=== PATIENT | female | born 1945 | race Caucasian/White ===

== ENCOUNTER 2020-03-20 13:23 | Outpatient (CLI) | payer MEDICARE, SELFPAY ==
--- NOTE | ~2020-03-20 | US_ITS ---
EXAMINATION: US pelvic complete w TV EXAM DATE: 03/20/2020 15:02 INDICATION: Left-sided ovarian cyst. TECHNIQUE: Pelvic transabdominal and transvaginal sonogram was performed. There are multiple graysca le and Doppler images available for interpretation. There is no prior study for comparison. Correla tion was made with CT chest abdomen pelvis 10/22/2018. FINDINGS: Uterus surgically resected. Unremarkable vaginal cuff. There is no free pelvic fluid. Right adnexa: The ovary is not identified. There is no adnexal mass. Left adnexa: Left adnexal anechoic simple cystic region measuring 4.7 x 2.6 x 3.0 cm without evidence of wall thickening or internal echoes, appearance most consistent with benign histology. This is not significantly changed assuming it is the same cystic lesion identified in the left ovary on CT scan September 2018. IMPRESSION: Persistent left ovarian anechoic simple cystic region. Differential diagnosis does includ e cystic ovarian neoplasm, but most likely benign. Reviewed, dictated and finalized at location B. IMPRESSION: Persistent left ovarian anechoic simple cystic region. Differential diagnosis does include cystic ovarian neoplasm, but most likely benign.
== END 2020-03-20 13:24 | disposition home or self-care (01) ==
PROVIDERS: Visit Provider Nurse Practitioner
DX: N83.202 Unspecified ovarian cyst, left side (principal)
CPT/HCPCS: 76830; 76856

== ENCOUNTER → 2021-04-12 14:16 | Outpatient (CLI) | payer MEDICARE, SELFPAY ==
--- NOTE | ~2021-04-12 | US_ITS ---
EXAMINATION: US transvaginal DATE: 04/12/2021 14:53 INDICATION: Left ovarian cyst. TECHNIQUE: Multiple transvaginal sonographic images of the pelvis were obtained. COMPARISON: Ultrasound 03/20/2020 FINDINGS: The uterus is absent. There is no free fluid in the pelvis. The right ovary measures 2.0 x 1.1 x 1.7 cm. The left ovary measures 4.4 x 2.7 x 2.6 cm. There is a 4.4 x 2.7 cm cystic mass with low level ec hoes in left ovary that was anechoic on the prior ultrasound. There is normal vascular flow in the ov jaxson. IMPRESSION: 1. 4.4 cm cystic mass in left ovary, stable in size from 03/20/2020, but with new low level echoes. Th taylor findings are suggestive of, but not classic for, hemorrhagic cyst or endometrioma. Consider surgi lianna evaluation. Reviewed, dictated and finalized at location A. IMPRESSION: 1. 4.4 cm cystic mass in left ovary, stable in size from 03/20/2020, but with ne w low level echoes. These findings are suggestive of, but not classic for, hemo rrhagic cyst or endometrioma. Consider surgical evaluation.
== END ==
PROVIDERS: PCP Family Medicine; Visit Provider Obstetrics & Gynecology Gynecology
DX: N83.202 Unspecified ovarian cyst, left side (principal)
CPT/HCPCS: 76830

== ENCOUNTER → 2021-08-13 13:38 | Outpatient (CLI) | payer MEDICARE, SELFPAY ==
--- NOTE | ~2021-08-13 | US_ITS ---
EXAMINATION: US transvaginal EXAM DATE: 08/13/2021 14:06 INDICATION: Ovarian cyst. TECHNIQUE: Pelvic transvaginal sonogram was performed. There are multiple grayscale and Doppler imag es available for interpretation. Comparison is made to prior examination from 04/02/2021. FINDINGS: Uterus is not identified. Unremarkable vaginal cuff. Right adnexa: The ovary is not identified. There is no adnexal mass. Left adnexa: Left ovary has 2 cystic regions which are contiguous to each other, measuring 2.3 x 2.3 x 1.6 cm and 1.5 x 1.5 x 1.5 cm. They could be part of the same cystic mass given they're contiguous. These may have some proteinaceous fluid, and are unchanged compared to prior study. No wall thickeni ng identified along the cystic regions. IMPRESSION: Chronic left ovarian cystic mass, differential diagnosis including endometrioma, cystic o varian neoplasm (would favor benign histology). Reviewed, dictated and finalized at location B. NURSE RN IMPRESSION: Chronic left ovarian cystic mass, differential diagnosis including endometrioma, cystic ovarian neoplasm (would favor benign histology).
== END ==
PROVIDERS: Visit Provider Obstetrics & Gynecology Gynecology
DX: N83.202 Unspecified ovarian cyst, left side (principal)
CPT/HCPCS: 76830

== ENCOUNTER → 2022-05-20 15:10 | Outpatient (CLI) | payer MEDICARE, SELFPAY ==
--- NOTE | ~2022-05-20 | US_ITS ---
EXAMINATION: US transvaginal DATE: 05/20/2022 16:15 INDICATION: Follow-up left ovarian cyst. Comparison:08/13/2021 TECHNIQUE: Multiple endovaginal sonographic images of the pelvis performed. FINDINGS: The uterus is surgically absent. The right ovary is not visualized. The left ovary measures 3.6 x 2 x 3.2 cm and contains 2 small cyst s measuring up to 1.5 x 1.5 x 1.5 cm compared with 2.3 x 2.3 x 1.6 cm on prior study. There is free fluid in the pelvis. There are no abnormal masses seen on either side. IMPRESSION: 1. Small cysts of the left ovary measuring up to 1.5 cm, decreased in size compared with prior. Reviewed, dictated and finalized at location A. IMPRESSION: 1. Small cysts of the left ovary measuring up to 1.5 cm, decreased in size comp ared with prior.
== END ==
PROVIDERS: PCP Orthopaedic Surgery Orthopaedic Trauma; Visit Provider Obstetrics & Gynecology Gynecology
DX: N83.202 Unspecified ovarian cyst, left side (principal)
CPT/HCPCS: 76830

== ENCOUNTER 2023-05-29 15:50 | Outpatient (CLI) | payer MEDICARE, SELFPAY ==
--- NOTE | ~2023-05-29 | XR_ITS ---
EXAMINATION: XR chest 2V DATE: 05/29/2023 16:09 INDICATION: Cough. Wheezing. TECHNIQUE: Frontal and lateral views of the chest were obtained. COMPARISON: Chest 2 views 08/12/2013, PET/CT 11/03/2018 FINDINGS: A calcified right lung nodule and calcified mediastinal lymph nodes are consistent with old granulomatous disease. There are airspace opacities in right lower lobe. No pleural effusion or pneu mothorax. Cardiomegaly is noted. IMPRESSION: 1. Airspace opacities in right lower lobe, consistent with atelectasis versus pneumonia. 2. Cardiomegaly. Reviewed, dictated and finalized at location E. IMPRESSION: 1. Airspace opacities in right lower lobe, consistent with atelectasis versus p neumonia. 2. Cardiomegaly.
== END 2023-05-29 15:51 | disposition home or self-care (01) ==
PROVIDERS: PCP Internal Medicine; Visit Provider Internal Medicine
DX: R05.3 Chronic cough (principal); I51.7 Cardiomegaly; R91.8 Other nonspecific abnormal finding of lung field
CPT/HCPCS: 71046

== ENCOUNTER 2023-06-09 15:57 | Outpatient (CLI) | payer MEDICARE, SELFPAY ==
--- NOTE | ~2023-06-09 | XR_ITS ---
EXAMINATION: XR chest 2V Exam Date/Time: 06/09/2023 16:10 CDT HISTORY: Cough, Walking PNA, Afib Comparison: 05/29/2023. RESULT: Lines, tubes, and devices: None. Lungs and pleura: Senescent change. Calcified peripheral right midlung granuloma. Cardiomediastinal silhouette: Stable cardiomegaly. Other: No acute osseous or upper abdominal finding. IMPRESSION: No acute cardiopulmonary process. Near-complete interval resolution of the right lower lung opacities . Reviewed, dictated and finalized at location K. IMPRESSION: No acute cardiopulmonary process. Near-complete interval resolution of the righ t lower lung opacities.
== END 2023-06-09 15:58 | disposition home or self-care (01) ==
PROVIDERS: PCP Internal Medicine; Visit Provider Internal Medicine
DX: R05.9 Cough, unspecified (principal); I48.91 Unspecified atrial fibrillation
CPT/HCPCS: 71046

== ENCOUNTER 2023-07-17 08:03 | Day surgery (SDC) | payer MEDICARE, SELFPAY ==
[2023-06-25 15:06] VITALS: BMI 24.8
[2023-06-30 15:09] VITALS: BMI 24.5
--- NOTE | 2023-07-16 15:36 | PM.HPGS ---
History of Present Illness History of Present Illness Consent: Risks, benefits, and alternatives have been discussed and questions answered. Patient agrees to proceed with procedure. Chief complaint: Positive Cologuard, Other Fecal Abnormalities Narrative: Cande Torres is a 77 year old female Was referred for colon cancer screening. She was found have a positive Cologuard test. Her last colonoscopy was 11 years ago. Review of Systems Review of Systems: All systems reviewed & are unremarkable except as noted in HPI and below PMFSH Past Medical History Medical History Acute pain of both ears BMI 24.0-24.9, adult Chronic cough Colon cancer screening Encounter for Medicare annual wellness exam Encounter to establish care Follow up Hearing loss Hx of breast cancer Malignant neoplasm of female breast Pain in joint involving pelvic region and thigh Pneumonia Pre-diabetes Thyroid nodule Family History Family History Mother Family history of heart disease in male family member before age 55 Social History Social History Social History: Caffeine-none Smoking status: Never smoker Alcohol intake: current Drinks per week: 0 Alcohol use details: RARELY Substance use: never Substance use type: does not use Lack of Transportation: No Lack of Food: Never True Current Housing: I Have Housing Concerned About Future Housing: No Difficulty Paying Gas/Electric Bills: No Difficulty Paying for Meds: No Currently Unemployed: No Education: High School Diploma/GED Difficulty w/ Childcare or Family Care: No Living arrangements: with family Spiritual care concerns: No Meds Home Medications and Allergies Home Medications Medication Instructions Recorded Confirmed Type digoxin 125 mcg (0.125 mg) tablet 125 mcg PO DAILY 08/06/19 07/17/23 History (Digox) rivaroxaban 20 mg tablet (Xarelto) 20 mg PO DAILY 08/06/19 07/17/23 History rabeprazole 20 mg tablet,delayed 20 mg PO DAILY #90 tabs 09/15/19 07/17/23 Rx release tamoxifen 20 mg tablet 20 mg PO DAILY 02/18/23 07/17/23 History clonazepam 2 mg tablet 2 mg PO DAILY #30 tabs 07/14/23 07/17/23 Rx Allergies Allergy/AdvReac Type Severity Reaction Status Date / Time latex Allergy Unknown Rash Verified 07/17/23 09:28 Penicillins Allergy Unknown Rash Verified 07/17/23 09:28 ranitidine Allergy Unknown Unknown Verified 07/17/23 09:28 Contrast Media Allergy Unknown Rash Uncoded 07/17/23 09:28 promethazine codeine AdvReac Mild Dizziness Uncoded 07/17/23 09:28 Exam Resp: Auscultation: clear to auscultation bilaterally Cardio: Rate: regular rate Rhythm: regular rhythm GI: GI Palp: Yes Soft to palpation and No Tenderness to palpation present (GI) Assessment and Plan Assessment and plan (1) Positive colorectal cancer screening using Cologuard test: Code(s): R19.5 - Other fecal abnormalities Status: Acute Assessment and Plan: Colonoscopy with possible biopsy or polypectomy or cautery or injection of substances.
[2023-07-17 09:34] VITALS: BP 128/84; PULSE 98; RESP 18; TEMP 37.4; O2SAT 100
[2023-07-17] MEDS: LACTATED RINGERS 1,000 ML 150 ML IV CONT (09:46)
--- NOTE | 2023-07-17 10:00 | WPDANESEPPF ---
Anes - Initial Pre Proc Eval Procedure: Operation Date: 07/17/23 10:30 Proposed Procedures p Diagnostic Colonoscopy - Marvin Fischer MD Date/Time: 07/17/23 10:00 Surgeon: Marvin Fischer MD Pre Op Diagnosis: Positive Cologuard, Other Fecal Abnormalities Patient Data Age: 77 Gender: F Height: 1.68 m Weight: 67.6 kg Last Vital Signs Temp 37.4 C 07/17/23 09:34 Pulse 98 07/17/23 09:34 Resp 18 07/17/23 09:34 BP 128/84 07/17/23 09:34 Pulse Ox 100 07/17/23 09:34 O2 Del Method Room Air 07/17/23 09:34 Allergies Allergy/AdvReac Type Severity Reaction Status Date / Time latex Allergy Unknown Rash Verified 07/17/23 09:28 Penicillins Allergy Unknown Rash Verified 07/17/23 09:28 ranitidine Allergy Unknown Unknown Verified 07/17/23 09:28 Contrast Media Allergy Unknown Rash Uncoded 07/17/23 09:28 promethazine codeine AdvReac Mild Dizziness Uncoded 07/17/23 09:28 Home Medications Medication Instructions Recorded Confirmed Type digoxin 125 mcg (0.125 mg) tablet 125 mcg PO DAILY 08/06/19 07/17/23 History (Digox) rivaroxaban 20 mg tablet (Xarelto) 20 mg PO DAILY 08/06/19 07/17/23 History rabeprazole 20 mg tablet,delayed 20 mg PO DAILY #90 tabs 09/15/19 07/17/23 Rx release tamoxifen 20 mg tablet 20 mg PO DAILY 02/18/23 07/17/23 History clonazepam 2 mg tablet 2 mg PO DAILY #30 tabs 07/14/23 07/17/23 Rx Patient hx anesthesia problems: other (slow to awaken) Family hx anesthesia problems: none Results Review: All pre-operative results and documents have been reviewed as part of the pre-operative evaluation. [facility] Past Medical History Medical History Acute pain of both ears BMI 24.0-24.9, adult Chronic cough Colon cancer screening Encounter for Medicare annual wellness exam Encounter to establish care Follow up Hearing loss Hx of breast cancer Malignant neoplasm of female breast Pain in joint involving pelvic region and thigh Pneumonia Pre-diabetes Thyroid nodule Family History Family History Mother Family history of heart disease in male family member before age 55 Social History Social History Social History: Caffeine-none Smoking status: Never smoker Alcohol intake: current Drinks per week: 0 Alcohol use details: RARELY Substance use: never Substance use type: does not use Lack of Transportation: No Lack of Food: Never True Current Housing: I Have Housing Concerned About Future Housing: No Difficulty Paying Gas/Electric Bills: No Difficulty Paying for Meds: No Currently Unemployed: No Education: High School Diploma/GED Difficulty w/ Childcare or Family Care: No Living arrangements: with family Spiritual care concerns: No Anes - Eval Final PreProcedure Day of Procedure 07/17/23 10:00 Patient weight: normal Heart: regular rate and rhythm Lungs: clear to auscultation Airway: Mallampati scale class III Neurological: other (alert) Last oral intake: >/= 8 hours ASA classification: III Emergent: no Anesthetic plan: proceed Anesthesia type and monitoring: general GIVS and standard monitoring Results Review: All pre-operative results and documents have been reviewed as part of the pre-operative evaluation. Informed Consent: The patient's anesthetic plan and its attendant risks and benefits were discussed with the patient/family/POA. Questions were solicited and answers provided to the satisfaction of the patient/family/POA.
[2023-07-17 11:09] VITALS: BP 92/52; PULSE 82; RESP 14; O2SAT 98
[2023-07-17 11:19] VITALS: BP 92/52; PULSE 82; RESP 14; O2SAT 98
--- NOTE | 2023-07-17 11:27 | WPDANESPN ---
Anes - Prog Note Post-Op Date/Time: 07/17/23 11:27 Cardiovascular status: normal Respiratory status: normal Airway patency: baseline Mental status: baseline Post-Op hydration status: normal Vital Signs: Last Vital Signs Temp 37.4 C 07/17/23 09:34 Pulse 82 07/17/23 11:19 Resp 14 07/17/23 11:19 BP 92/52 L 07/17/23 11:19 Pulse Ox 98 07/17/23 11:19 O2 Del Method Room Air 07/17/23 11:19 Pain Score (VAS): 0 I/O: Intake & Output 07/16/23 07/17/23 07/17/23 23:59 07:59 15:59 Intake Total 550 Balance 550 Patient Feedback: Patient satisfied with anesthetic care.
[2023-07-17 11:29] VITALS: BP 122/72; PULSE 74; RESP 16; O2SAT 98
--- NOTE | 2023-07-17 11:48 | SUR.PHASEII ---
SPOKE WITH DR KYLE, PT MAY RESUME XARELTO TODAY. PT AND SPOUSE NOTIFIED. ALSO WRITTEN ON PT'S DISCHARGE INSTRUCTIONS.
== END 2023-07-17 11:55 | disposition home or self-care (01) ==
PROVIDERS: PCP Internal Medicine; Visit Provider Internal Medicine Gastroenterology
PROC: 0DJD8ZZ Inspection of Lower Intestinal Tract, Via Natural or Artificial Opening Endoscopic (ICD-10-PCS; CPT 45378; principal; 2023-07-17 10:30)
DX: K64.8 Other hemorrhoids (principal); K57.30 Diverticulosis of large intestine without perforation or abscess without bleeding
CPT/HCPCS: 45378

== ENCOUNTER → 2023-11-11 09:24 | Outpatient (REF) | payer MEDICARE, SELFPAY | LOC: ANHLAB 09:24 | PROVIDERS: PCP Internal Medicine; Visit Provider Plastic Surgery | DX: C44.722 Squamous cell carcinoma of skin of right lower limb, including hip (principal) | CPT/HCPCS: 88305 ==

== ENCOUNTER 2024-01-19 14:45 | Outpatient (CLI) | payer MEDICARE, SELFPAY ==
--- NOTE | ~2024-01-19 | XR_ITS ---
EXAMINATION: XR pelvis min 3V DATE: 01/19/2024 15:21 INDICATION: Low back pain, unspecified. TECHNIQUE: 3 views of the pelvis were obtained. COMPARISON: Pelvis radiograph 02/26/2019 FINDINGS: There is lumbar dextroscoliosis and severe spondylosis. There is diffuse sclerosis of the b ones. No fracture. There is mild osteoarthritis of the hips. IMPRESSION: 1. Mild osteoarthritis of the hips. 2. Chronic diffuse sclerosis of the bones. Bone biopsy on 11/06/2018 was negative for malignancy. This finding may be secondary to an abnormality of calcium metabolism. Reviewed, dictated and finalized at location E. IMPRESSION: 1. Mild osteoarthritis of the hips. 2. Chronic diffuse sclerosis of the bones. Bone biopsy on 11/06/2018 was negative for malignancy. This finding may be secondary to an abnormality of calcium met abolism.
--- NOTE | ~2024-01-19 | XR_ITS ---
EXAMINATION: XR lumbar spine 2-3V DATE: 01/19/2024 15:21 INDICATION: Low back pain, unspecified. TECHNIQUE: 3 views of lumbar spine were obtained. COMPARISON: None. FINDINGS: There is 10 degrees dextroscoliosis of lumbar spine. Vertebral body heights are normal. The re is mildly decreased disc height at L1-L2 and L2-L3, moderately decreased disc height at L3-L4, and severely decreased disc height at L4-L5 and L5-S1. There is multilevel severe facet joint osteoarthr itis. IMPRESSION: 1. Severe lumbar spondylosis. 2. Lumbar dextroscoliosis. Reviewed, dictated and finalized at location E.
--- NOTE | ~2024-01-19 | XR_ITS ---
XR thoracic spine 3V 01/19/2024 15:21 Indication: Thoracic spondylosis Procedure: 3 views thoracic spine Comparison: No prior studies for comparison. Findings: There is mild multilevel thoracic spondylosis characterized by disc narrowing and endplate sclerosis. Mild dextrocurvature of the thoracic spine. No acute fracture or traumatic malalignment. N o paraspinal soft tissue abnormality. Surrounding osseous structures within normal limits. Pedicles i ntact. Impression: 1: Mild thoracic spondylosis. Reviewed, dictated and finalized at location B. Impression: 1: Mild thoracic spondylosis.
== END 2024-01-19 14:46 | disposition home or self-care (01) ==
LOC: ANHIMG 14:48
PROVIDERS: PCP Internal Medicine; Visit Provider Internal Medicine
DX: M47.894 Other spondylosis, thoracic region (principal); M16.0 Bilateral primary osteoarthritis of hip; M47.896 Other spondylosis, lumbar region
CPT/HCPCS: 72072; 72100; 72190

== ENCOUNTER 2024-06-25 09:55 | Outpatient (CLI) | payer MEDICARE, SELFPAY ==
--- NOTE | 2024-06-25 11:32 | ECG_ITS ---
Test Date: 2024-06-25 11:59:23 Measurements Intervals [place] Rate: 88 P: 0 MT: 0 QRS: -38 QRSD: 88 T: -4 QT: 350 QTc: 425 Interpretive Statements ATRIAL FIBRILLATION LEFT AXIS DEVIATION POSSIBLE RIGHT VENTRICULAR CONDUCTION DELAY CANNOT R/O SEPTAL INFARCT, AGE INDETERMINATE BORDERLINE ST-T WAVE ABNORMALITY- ANT/INF LEADS BASELINE ARTIFACT- I, II, III, AVR, AVL, AVF, V3 ABNORMAL ECG No previous ECG available for comparison Electronically Signed On 06-25-2024 12:16:47 CDT by Ru Montalvo D.O.
[2024-06-25 12:28] LABS: Basophils Absolute Auto 0.1 K/mm3 (0.0-0.1); Basophils Percent Auto 0.9 % (0.2-1.2); Eosinophils Absolute Auto 0.1 K/mm3 (0-0.3); Eosinophils Percent Auto 1.3 % (0-4.4); Hemoglobin 12.1 g/dL (12.0-15.0); Immature Granulocyte Absolute 0.02 K/mm3 (0.00-0.031); Immature Granulocyte Percent A 0.3 % (0-0.5); Lymphocytes Absolute Auto 1.53 K/mm3 (0.9-3.2); Lymphocytes Percent Auto 20.1 % (18.3-44.2); Mean Corpuscular HGB Conc 31.8 g/dl (32-36); Mean Corpuscular Hemoglobin 29.7 pg (26-34); Mean Corpuscular Volume 93.4 fl (80-100); Monocytes Absolute Auto 0.7 K/mm3 (0.1-0.6); Monocytes Percent Auto 9.1 % (2.6-8.5); Neutrophils Absolute Auto 5.2 K/mm3 (1.3-6.7); Neutrophils Percent Auto 68.3 % (45.5-73.1); Platelet Count Result 204 k/mm3 (150-375); Red Blood Count 4.07 M/mm3 (4.2-5.4); Red Cell Distribution Width 13.5 % (11.5-14.5); White Blood Count 7.6 K/mm3 (4.5-10.0)
[2024-06-25 12:40] LABS: Albumin Level 4.3 g/dL (3.5-5.1); Anion Gap 8 mmol/L (4-12); Blood Urea Nitrogen 15 mg/dL (7-17); Calcium 9.1 mg/dL (8.4-10.2); Carbon Dioxide 29 mmol/L (22-30); Chloride 102 mmol/L (98-107); Estimated Glomerular Filt Rate > 60; Glucose 99 mg/dL (65-110); Potassium 4.3 mmol/L (3.4-5.0); Sodium 139 mmol/L (137-145)
[2024-06-25 12:42] LABS: Hemoglobin A1C 6.1 % (<5.7)
[2024-06-25 13:12] LABS: Digoxin 0.9 ng/mL (0.8-2.0)
[2024-06-25 14:13] LABS: Urine Cotinine NEGATIVE
== END 2024-06-25 09:56 | disposition home or self-care (01) ==
LOC: ANHSURGERY 09:58
PROVIDERS: Anesthesiology; PCP Internal Medicine; Visit Provider Orthopaedic Surgery
DX: Z01.818 Encounter for other preprocedural examination (principal); M17.12 Unilateral primary osteoarthritis, left knee; I48.91 Unspecified atrial fibrillation; R94.31 Abnormal electrocardiogram [ECG] [EKG]; Z51.81 Encounter for therapeutic drug level monitoring
CPT/HCPCS: 36415; 80048; 80162; 80307; 82040; 83036; 85025; 87081; 93005

== ENCOUNTER 2024-07-15 00:47 | Day surgery (SDC) | payer MEDICARE, SELFPAY ==
[2024-06-25 10:34] VITALS: BP 123/81; PULSE 96; RESP 16; TEMP 37.1; O2SAT 98; BMI 24.9
--- NOTE | 2024-06-25 10:59 | PC.NURSE ---
Report to the Outpatient Waiting Room, entrance under the green pavilion located off [facility], at time ___6:00AM____ on date ___07/15/24____. Planned Procedure Time: ____7:30AM____.? Time changes happen often and if your time is changed the preop area will call you the afternoon before. - You and your visitor will be asked to self-screen and do not enter if you have any COVID symptoms. Please call surgeon if you need to reschedule. - A mask is optional within the hospital at this time. Patients may have clear liquids (water, carbonated beverages, clear teas, apple juice) until 3 hours prior to surgery with a maximum of 20 ounces. - No food from midnight until time of surgery and no smoking. Take only the following medications with a SIP of water on the morning of surgery: DIGOXIN DO NOT STOP ANY OF YOUR OTHER PRESCRIPTION MEDICATIONS PRIOR TO SURGERY EXCEPT THE FOLLOWING Medications to discontinue per physician HOLD XERALTO 2 DAYS PRE-OP PER DR LEYVA-LAST DOSE 07/12/24. HOLD TAMOXIFEN 2 WEEKS PRE-OP PER ONCOLOGIST(IRENA)-LAST DOSE 06/30/24. HOLD ALL VITAMINS/SUPPLEMENTS 3 DAYS PRE-OP PER ANESTHESIA- LAST DOSE 07/11/24. Please no make-up, nail japanese, hairspray, perfume, deodorant, or body powder the day of surgery.? No jewelry (including any body piercings) or valuables the day of surgery, leave them at home.? Please take a shower or bath the night before, or the morning of, surgery with an antibacterial soap.? Wear comfortable, loose fitting clothing.? - Jewelry must be removed prior to entering the operating room.? Rings and piercings that are not removed may be cut off. - The hospital will not accept responsibility for valuables.? - Please leave all valuables, including medications, at home the day of surgery. If you are going home after surgery, a licensed compressed air pile driver operator must drive you home.? - NO public transportation without another adult if you receive anesthesia. - We recommend that an adult stay with you for 24 hours following discharge. - We also recommend that you do not drive, make important decision, drink alcoholic beverages, or take any drugs that were not prescribed by your health care provider for at least 24 hours after your discharge time. Follow any additional instructions given to you from your surgeon. Telephone instructions given to __PATIENT & HUSBAND and asked if any additional questions and then verbalized understanding. Patient advised to call surgeon office or pre surgery nurse liaison [phone] if any additional questions.
--- NOTE | 2024-07-14 07:26 | PM.IMHP ---
H&P: HPI History of Present Illness Date/Time: 07/14/24 07:26 Chief Complaint: DJD left knee Narrative: 78-year-old female patient of Dr. Saha who presents today for a left total knee arthroplasty. Patient has been having symptoms in her knee for years. She has been getting cortisone injections every 3 months. Last injections were March 31 this year. Patient is getting minimal improvement from the injections. She is unable take anti-inflammatories because she is on Xarelto chronically for AFib. Patient has had her right knee replaced 10 years ago and is doing very well. Patient feels at this point she is ready proceed with total knee arthroplasty the left. She has severe lateral compartment osteoarthritis in the knee Review of Systems Review of Systems: All systems reviewed & are unremarkable except as noted in HPI and below PMFSH Past Medical History Medical History (Updated 06/21/24 @ 09:49 by Emmy Putnam CMA) Acute pain of both ears Afib BMI 24.0-24.9, adult Cancer of skin of right lower leg Chronic cough Chronic low back pain Colon cancer screening Encounter for Medicare annual wellness exam Encounter for routine adult health examination without abnormal findings Encounter to establish care Follow up Hearing loss Hx of breast cancer Malignant neoplasm of female breast Osteoarthritis of left knee Pain in joint involving pelvic region and thigh Pneumonia Pre-diabetes Pre-operative clearance Skin lesion of lower extremity Thyroid nodule Surgical History Surgical History H/O arthroscopic knee surgery History of foot surgery History of hysterectomy History of left mastectomy History of right knee joint replacement Family History Family History Mother Family history of heart disease in male family member before age 55 Social History Social History Social History: Caffeine-none Smoking status: Never smoker Second hand tobacco smoke exposure: No Alcohol intake: current Alcohol use details: RARELY Substance use: never Substance use type: does not use Do You Feel Safe in your Home?: Yes Lack of Transportation: No Lack of Food: Never True Current Housing: I Have Housing Concerned About Future Housing: No Difficulty Paying Gas/Electric Bills: No Difficulty Paying for Meds: No Currently Unemployed: No Education: High School Diploma/GED Difficulty w/ Childcare or Family Care: No Living arrangements: with family Additional living arrangements comments: [facility] 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e Spiritual care concerns: No Meds Home Medications and Allergies Home Medications Medication Instructions Recorded Confirmed Type digoxin 125 mcg (0.125 mg) tablet 125 mcg PO DAILY 08/06/19 06/25/24 History (Digox) rivaroxaban 20 mg tablet (Xarelto) 20 mg PO DAILY 08/06/19 06/25/24 History tamoxifen 20 mg tablet 20 mg PO DAILY 02/18/23 06/25/24 History rabeprazole 20 mg tablet,delayed 20 mg PO DAILY #90 tabs 08/08/23 06/25/24 Rx release acetaminophen 650 mg 650 mg PO Q12H PRN Pain 03/31/24 06/25/24 History tablet,extended release (Tylenol Arthritis Pain) cholecalciferol (vitamin D3) 125 125 mcg PO 3XW 03/31/24 06/25/24 History mcg (5,000 unit) capsule calcium 333 mg-magnesium 133 mg-D3 1 tablet PO 3XW 06/25/24 06/25/24 History 1.67 mcg-zinc 5 mg tablet clonazepam 2 mg tablet 2 mg PO HS 06/25/24 06/25/24 History metronidazole 1 % topical gel 1 applic topical QAM 06/25/24 06/25/24 History Allergies Allergy/AdvReac Type Severity Reaction Status Date / Time Iodinated Contrast Media Allergy Unknown Rash Verified 06/25/24 10:22 latex Allergy Unknown Rash Verified 06/25/24 1
--- NOTE | 2024-07-14 18:09 | WPDANESEPP ---
Anes - Eval Pre Procedure Procedure: Operation Date: 07/15/24 07:30 Proposed Procedures p Left Total Knee Arthroplasty - Misael Velazquez MD Date/Time: 07/14/24 18:09 Pre Op Diagnosis: OA left knee Patient Data Age: 78 Gender: F Height: 1.65 m Weight: 67.9 kg Last Vital Signs Temp 98.8 F 06/25/24 10:34 Pulse 96 06/25/24 10:34 Resp 16 06/25/24 10:34 BP 123/81 06/25/24 10:34 Pulse Ox 98 06/25/24 10:34 O2 Del Method Room Air 06/25/24 10:34 Allergies Allergy/AdvReac Type Severity Reaction Status Date / Time Iodinated Contrast Media Allergy Unknown Rash Verified 06/25/24 10:22 latex Allergy Unknown Rash Verified 06/25/24 10:22 Penicillins Allergy Unknown Rash Verified 06/25/24 10:22 oxycodone AdvReac Unknown passed out Verified 06/25/24 10:22 Home Medications Medication Instructions Recorded Confirmed Type digoxin 125 mcg (0.125 mg) tablet 125 mcg PO DAILY 08/06/19 06/25/24 History (Digox) rivaroxaban 20 mg tablet (Xarelto) 20 mg PO DAILY 08/06/19 06/25/24 History tamoxifen 20 mg tablet 20 mg PO DAILY 02/18/23 06/25/24 History rabeprazole 20 mg tablet,delayed 20 mg PO DAILY #90 tabs 08/08/23 06/25/24 Rx release acetaminophen 650 mg 650 mg PO Q12H PRN Pain 03/31/24 06/25/24 History tablet,extended release (Tylenol Arthritis Pain) cholecalciferol (vitamin D3) 125 125 mcg PO 3XW 03/31/24 06/25/24 History mcg (5,000 unit) capsule calcium 333 mg-magnesium 133 mg-D3 1 tablet PO 3XW 06/25/24 06/25/24 History 1.67 mcg-zinc 5 mg tablet clonazepam 2 mg tablet 2 mg PO HS 06/25/24 06/25/24 History metronidazole 1 % topical gel 1 applic topical QAM 06/25/24 06/25/24 History Patient hx anesthesia problems: none Family hx anesthesia problems: none Results Review: All pre-operative results and documents have been reviewed as part of the pre-operative evaluation. PMFSH Past Medical History Medical History (Updated 07/14/24 @ 18:11 by Humphrey Schreiber Jr., CRNA) Acute pain of both ears Afib Anxiety BMI 24.0-24.9, adult Cancer of skin of right lower leg Chronic cough Chronic low back pain Colon cancer screening Encounter for Medicare annual wellness exam Encounter for routine adult health examination without abnormal findings Encounter to establish care Follow up Gastroesophageal reflux disease Hearing loss Hx of breast cancer Malignant neoplasm of female breast Osteoarthritis Osteoarthritis of cervical spine Osteoarthritis of left knee Pain in joint involving pelvic region and thigh Pneumonia Pre-diabetes Pre-operative clearance RLS (restless legs syndrome) Skin lesion of lower extremity Thyroid nodule Surgical History Surgical History H/O arthroscopic knee surgery History of foot surgery History of hysterectomy History of left mastectomy History of right knee joint replacement Family History Family History Mother Family history of heart disease in male family member before age 55 Social History Social History Social History: Caffeine-none Smoking status: Never smoker Second hand tobacco smoke exposure: No Alcohol intake: current Alcohol use details: RARELY Substance use: never Substance use type: does not use Do You Feel Safe in your Home?: Yes Lack of Transportation: No Lack of Food: Never True Current Housing: I Have Housing Concerned About Future Housing: No Difficulty Paying Gas/Electric Bills: No Difficulty Paying for Meds: No Currently Unemployed: No Education: High School Diploma/GED Difficulty w/ Childcare or Family Care: No Living arrangements: with family Additional living arrangements comments: [employer] 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
[2024-07-15] VITALS (13 sets, daily range): BP systolic 116–148; BP diastolic 65–91; PULSE 76–97; RESP 12–20; TEMP 36.2–36.9; O2SAT 94–100
--- NOTE | ~2024-07-15 | XR_ITS ---
EXAMINATION: [id number] DATE: 07/15/2024 11:42 INDICATION: Postoperative evaluation following left total knee arthroplasty. TECHNIQUE: Anteroposterior and lateral views of the left knee were obtained. COMPARISON: 06/09/2024 FINDINGS: Left total knee arthroplasty with patellar resurfacing appears well seated and in near anatomic align ment. No fractures identified. Expected postoperative subcutaneous and intra-articular gas. IMPRESSION: 1. Left total knee arthroplasty, negative for postoperative purposes. Reviewed, dictated and finalized at location A.
[2024-07-15] MEDS: LACTATED RINGERS 1,000 ML 30 ML IV CONT ×2 (07:00→11:45)
[2024-07-15] MEDS: VANCOMYCIN 1,000 MG/NS 250 ML BAG 250 MG IVPB (07:06)
[2024-07-15] MEDS: ACETAMINOPHEN 500 MG TABLET 1000 MG PO (07:07)
[2024-07-15] MEDS: TRANEXAMIC ACID 1,000MG/ISO100 1,000 MG/100 ML BAG 200 MG IVPB (07:10)
--- NOTE | 2024-07-15 07:17 | WPDANESEPPF ---
Anes - Initial Pre Proc Eval Procedure: Operation Date: 07/15/24 07:30 Proposed Procedures p Left Total Knee Arthroplasty - Misael Velazquez MD Date/Time: 07/15/24 07:17 Surgeon: Misael Velazquez MD Pre Op Diagnosis: OA left knee Patient Data Age: 78 Gender: F Height: 1.65 m Weight: 67.9 kg Last Vital Signs Temp 37.1 C 06/25/24 10:34 Pulse 96 06/25/24 10:34 Resp 16 06/25/24 10:34 BP 123/81 06/25/24 10:34 Pulse Ox 98 06/25/24 10:34 O2 Del Method Room Air 06/25/24 10:34 Allergies Allergy/AdvReac Type Severity Reaction Status Date / Time Iodinated Contrast Media Allergy Unknown Rash Verified 07/15/24 07:13 latex Allergy Unknown Rash Verified 07/15/24 07:13 Penicillins Allergy Unknown Rash Verified 07/15/24 07:13 oxycodone AdvReac Unknown passed out Verified 07/15/24 07:13 Home Medications Medication Instructions Recorded Confirmed Type digoxin 125 mcg (0.125 mg) tablet 125 mcg PO DAILY 08/06/19 07/15/24 History (Digox) rivaroxaban 20 mg tablet (Xarelto) 20 mg PO DAILY 08/06/19 07/15/24 History tamoxifen 20 mg tablet 20 mg PO DAILY 02/18/23 06/25/24 History rabeprazole 20 mg tablet,delayed 20 mg PO DAILY #90 tabs 08/08/23 06/25/24 Rx release acetaminophen 650 mg 650 mg PO Q12H PRN Pain 03/31/24 06/25/24 History tablet,extended release (Tylenol Arthritis Pain) cholecalciferol (vitamin D3) 125 125 mcg PO 3XW 03/31/24 06/25/24 History mcg (5,000 unit) capsule calcium 333 mg-magnesium 133 mg-D3 1 tablet PO 3XW 06/25/24 06/25/24 History 1.67 mcg-zinc 5 mg tablet clonazepam 2 mg tablet 2 mg PO HS 06/25/24 06/25/24 History metronidazole 1 % topical gel 1 applic topical QAM 06/25/24 06/25/24 History Patient hx anesthesia problems: none Family hx anesthesia problems: none Results Review: All pre-operative results and documents have been reviewed as part of the pre-operative evaluation. [facility] Past Medical History Medical History Acute pain of both ears Afib Anxiety BMI 24.0-24.9, adult Cancer of skin of right lower leg Chronic cough Chronic low back pain Colon cancer screening Encounter for Medicare annual wellness exam Encounter for routine adult health examination without abnormal findings Encounter to establish care Follow up Gastroesophageal reflux disease Hearing loss Hx of breast cancer Malignant neoplasm of female breast Osteoarthritis Osteoarthritis of cervical spine Osteoarthritis of left knee Pain in joint involving pelvic region and thigh Pneumonia Pre-diabetes Pre-operative clearance RLS (restless legs syndrome) Skin lesion of lower extremity Thyroid nodule Surgical History Surgical History H/O arthroscopic knee surgery History of foot surgery History of hysterectomy History of left mastectomy History of right knee joint replacement Family History Family History Mother Family history of heart disease in male family member before age 55 Social History Social History Social History: Caffeine-none Smoking status: Never smoker Second hand tobacco smoke exposure: No Alcohol intake: current Alcohol use details: RARELY Substance use: never Substance use type: does not use Do You Feel Safe in your Home?: Yes Lack of Transportation: No Lack of Food: Never True Current Housing: I Have Housing Concerned About Future Housing: No Difficulty Paying Gas/Electric Bills: No Difficulty Paying for Meds: No Currently Unemployed: No Education: High School Diploma/GED Difficulty w/ Childcare or Family Care: No Living arrangements: with family Additional living arrangements comments: [facility] 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
--- NOTE | 2024-07-15 07:17 | WPDHPUPDATE1 ---
History and Physical Update Update Date/Time: 07/15/24 07:17 History and Physical has been reviewed, including an updated exam of the patient. There are NO changes in the patient's condition. Risks, benefits, and alternatives have been discussed and questions answered. Patient agrees to proceed with procedure.
[2024-07-15] MEDS: SODIUM CHLORIDE 0.9% IV 37.7 ML, MORPHINE SULFATE INJ (*CRX) 2 MG, ROPivacaine HCL 1% 2... INFILTRATE (07:37)
[2024-07-15] MEDS: ceFAZolin SODIUM 1 GM VIAL 3 GM (07:37)
[2024-07-15] MEDS: ceFAZolin 2 GM/D5W 50 ML 2 GM/50 ML BAG IVPB ×3 (07:49→22:09)
[2024-07-15] MEDS: GENTAMICIN BONE CEMENT REFOBACIN 1 EACH TOPICAL (10:35)
[2024-07-15] MEDS: ceFAZolin SODIUM 1 GM VIAL 2 GM IV PUSH (10:51)
[2024-07-15] MEDS: TRANEXAMIC ACID 1,000 MG/10 ML AMPUL 1000 MG IV PUSH (10:53)
--- NOTE | 2024-07-15 11:55 | W.PM.PROC2 ---
Procedure Note - Detailed Date of Procedure 07/15/24 Pre-op Diagnosis OA left knee, 18 degree valgus deformity Post-op Diagnosis Same Procedure Performed Left total knee arthroplasty using SSK implants Surgeon Misael Velazquez MD [employer] Lamont Liao Anesthesia General Description of Procedure Patient was brought to the operating room and general anesthesia was administered. The left knee was prepped draped usual fashion. She received weight based vancomycin 2 g of Ancef 1 g of TXA preoperatively. Her blood pressure prior to OR was 190 systolic. Limb was exsanguinated tourniquet elevated to 300 mmHg. A 7 in longitudinal midline incision was used and a vastus medialis splitting approach utilized. Infrapatellar and suprapatellar fat pads were partially excised in the quadriceps synovectomy carried out. The patella had fairly significant degenerative changes but without deformity. A minimal lateral facetectomy was performed. We noted that she had rather unusually pronounced synovitis through the knee. The synovial proliferation was reminiscent of a rheumatoid patient but there were no free-floating rice bodies in the knee. A guide smitha was inserted on femoral canal after aspiration of canal contents using the 5 degree valgus cutting bushing 9 mm of bone removed the distal femur which referenced off the normal articular cartilage in the medial femoral condyle. This removed about 5 mm from lateral side. Next the tibial plateau was cut. We started with a very conservative cut perpendicular to the axis of the tibia which barely skived off the low point of the lateral tibial plateau where there was wear and eburnation. This could remnants were excised the PCL recessed. We were too tight in flexion therefore an additional 2 mm of bone removed from the tibial plateau. It was notable that her bone was unusually dense throughout throughout the femur and tibial plateau even centrally at 90? the flexion gap was 8 mm medially and 11 mm laterally. A femoral sizing guide was applied set at 4? of external rotation which matched Whitesides line. Posterior referencing pinholes were placed and the femur was cut to a size 62.5 vanguard. This fit nicely line to line medial to lateral and the anterior flange rested on the anterior cortex. On trialing there was about a 15 degree flexion contracture with the 10 CR insert booked open medially and tight laterally. There is 2 mm of play with a Nava elevator at 90? of flexion. Next the lateral capsule and IT band was transversely released between the patellar tendon and the lateral collateral ligament. We then released the posterolateral corner at the level of the joint line anterior to lateral collateral ligament to the crossing point of the popliteus tendon. The tibia was sized to a 67 which was placed at proper rotation and punched. Because of the unusually dense bone punching took a fair amount of time to fully seat the punch. We trialed the 10 insert and this point we had a 10 degree flexion contracture with no play laterally and the medial booking would close down with a varus stress. Medially the knee opened up to 3 mm at 10?. Minimal posterior femoral osteophyte was noted and removed. Since there was no play laterally to varus stress it was clear that additional bone removal was neck is very. I was willing to increase the valgus alignment of the femur to 6?. We applied the distal femoral cutting block and removed 2 mm from the lateral femoral condyle distally and 1 mm of medial femoral condyle distally and confirmed a 6 degree cut alignment with the 6 degree wing the intramedullary smitha. At this point the knee came out to about 2? from full extension and still a positive bounce and no play laterally. Medially in extension the knee opened up 3 or 4 mm but at 30? opened up 5 mm to valgus stress. This was proof that we would need to use SSK constraint as we had maximized the posterior lateral and lateral release short
--- NOTE | 2024-07-15 11:57 | PM.OP ---
Procedure Note - Brief Procedure Note - Brief Date of procedure: 07/15/24 OA left knee Procedure performed: Left total knee arthroplasty Surgeon: ALAINA Bagley Findings: 78-year-old female who underwent left total knee arthroplasty on 07/15. I was involved in the procedure including positioning the patient on the OR table in 1st assisting through the time of surgery. Total time spent was 4 hours
--- NOTE | 2024-07-15 12:50 | SUR.PHASEI ---
Simple mask removed 1250.
--- NOTE | 2024-07-15 13:29 | PC.NURSE ---
This patient, Cande Torres, was admitted to 3 [facility] Surg Room 319-01. Patient/family oriented to hospital policies and general routines including ID bracelet, bed and alarms, visiting hours, pain management, procedures, bathroom and other care routines, personal items, smoking policy, room service/diet, and visiting hours. Information on how to activate the Rapid Response Team has been discussed. Patient/Family are encouraged to report perceived risks to care and to ask questions if they do not understand what they are told or what they should do.
--- NOTE | 2024-07-15 13:55 | PM.IMCN ---
Assessment and Plan Assessment and plan (1) Osteoarthritis of left knee: Qualifiers: Osteoarthritis type: unspecified Qualified Code(s): M17.12 - Unilateral primary osteoarthritis, left knee Code(s): M17.12 - Unilateral primary osteoarthritis, left knee Status: Acute Assessment and Plan: Postoperative day 0 status post left total knee arthroplasty. Wound care, pain control, and DVT prophylaxis deferred to Dr. Velazquez. Check baseline labs in a.m. (2) Atrial fibrillation: Code(s): I48.91 - Unspecified atrial fibrillation Status: Acute Assessment and Plan: She is in AFib at this time and is rate controlled. Check digoxin level in a.m. (3) Chronic anticoagulation: Code(s): Z79.01 - superintendent terminal (current) use of anticoagulants Status: Acute Assessment and Plan: Resume rivaroxaban when okay with surgeon. (4) Gastroesophageal reflux disease: Qualifiers: Esophagitis presence: esophagitis presence not specified Qualified Code(s): K21.9 - Gastro-esophageal reflux disease without esophagitis Code(s): K21.9 - Gastro-esophageal reflux disease without esophagitis Status: Acute Assessment and Plan: Continue PPI. (5) History of left breast cancer: Code(s): Z85.3 - Personal history of malignant neoplasm of breast Status: Acute Assessment and Plan: Tamoxifen on hold to reduce risk of DVT postoperatively. Resume when okay with surgeon. Plan Thank you for allowing us to participate in this patient's care. Please do not hesitate to contact us with any questions. HPI Date of Consult Consult date: 07/15/24 Requesting Physician: Misael Velazquez MD Primary Care Provider: Enzo Saha MD Consult Narrative Reason for consult: medical management Narrative: This is a 78-year-old female with history of osteoarthritis, atrial fibrillation on chronic anticoagulation, gastroesophageal reflux disease, anxiety, and breast cancer whom the hospitalist service has been consulted for help managing her medical conditions postoperatively. She presented today for elective left total knee arthroplasty due to ongoing pain despite conservative outpatient treatment. Surgery was performed under general anesthesia with no immediate complications documented. Postoperatively she has done quite well and has been up to the chair and to the bathroom without issue. Her pain is pretty well controlled. She denies fever, chills, sweats, chest pain, shortness a breath, nausea, and vomiting. She also denies paresthesias, skin color, and temperature changes distal to the surgical site. Regarding her chronic medical conditions, she believes that they are well controlled on medication. She sounds to be in AFib at this time but is not having any symptoms of that. Xarelto was held a few days before surgery as well as her tamoxifen and both will be resumed at the discretion of her surgeon. On discharge her will be helping care for her at home. Review of Systems Review of Systems: 12 systems were reviewed and are negative except for as per HPI. [facility] Past Medical History Medical History (Updated 07/15/24 @ 16:47 by Darlin Catherine PA-C) Anxiety Atrial fibrillation Cancer of left breast Chronic anticoagulation Chronic low back pain Gastroesophageal reflux disease Hearing loss Osteoarthritis Pre-diabetes Restless leg syndrome Thyroid nodule Surgical History Surgical History (Updated 07/15/24 @ 16:45 by Darlin Catherine PA-C) History of arthroscopic knee surgery History of bunionectomy of both great toes History of cataract extraction with lens replacement History of hysterectomy History of left knee replacement (07/15/24) History of left mastectomy History of right knee joint replacement (2012) History of tonsillectomy Family History Family History (Reviewed 07/15/24 @ 16:45 by Darlin Catherine
[2024-07-15] MEDS: oxyCODONE HCL (*CRX) 2.5 MG TAB IR PO ×3 (14:02→22:09)
[2024-07-15] MEDS: SODIUM CHLORIDE 0.9% IV 1,000 ML 125 ML IV CONT (14:02)
[2024-07-15] MEDS: ACETAMINOPHEN 325 MG TABLET 650 MG PO ×3 (14:02→22:09)
[2024-07-15] MEDS: ONDANSETRON INJ 4 MG/2 ML VIAL IV PUSH (15:04)
[2024-07-15] MEDS: SENNA/DOCUSATE SODIUM TABLET 2 TAB PO (17:13)
[2024-07-15] MEDS: VANCOMYCIN 1,000 MG/NS 250 ML 1,000 MG/250 ML BAG 125 MG IVPB (17:59)
[2024-07-15] MEDS: FAMOTIDINE 20 MG TABLET PO (22:09)
[2024-07-16 02:58] VITALS: BP 110/62; PULSE 66; RESP 16; TEMP 36.8; O2SAT 100
[2024-07-16] MEDS: ACETAMINOPHEN 325 MG TABLET 650 MG PO ×3 (04:57→12:33)
[2024-07-16] MEDS: oxyCODONE HCL (*CRX) 2.5 MG TAB IR PO ×3 (04:57→12:34)
[2024-07-16] MEDS: ceFAZolin 2 GM/D5W 50 ML 2 GM/50 ML BAG IVPB (06:16)
[2024-07-16 06:27] LABS: Basophils Absolute Auto 0.1 K/mm3 (0.0-0.1); Basophils Percent Auto 0.5 % (0.2-1.2); Eosinophils Absolute Auto 0.1 K/mm3 (0-0.3); Eosinophils Percent Auto 0.5 % (0-4.4); Hemoglobin 9.1 g/dL (12.0-15.0); Immature Granulocyte Absolute 0.09 K/mm3 (0.00-0.031); Immature Granulocyte Percent A 0.7 % (0-0.5); Immature Platelet Fraction Pct 11.6 % (0.9-11.2); Lymphocytes Absolute Auto 1.61 K/mm3 (0.9-3.2); Lymphocytes Percent Auto 12.1 % (18.3-44.2); Mean Corpuscular HGB Conc 31.4 g/dl (32-36); Mean Corpuscular Hemoglobin 29.5 pg (26-34); Mean Corpuscular Volume 94.2 fl (80-100); Mean Platelet Volume 13.1 fl (7.4-10.4); Monocytes Absolute Auto 1.2 K/mm3 (0.1-0.6); Monocytes Percent Auto 8.9 % (2.6-8.5); Neutrophils Absolute Auto 10.3 K/mm3 (1.3-6.7); Neutrophils Percent Auto 77.3 % (45.5-73.1); Platelet Count Result 156 k/mm3 (150-375); Red Blood Count 3.08 M/mm3 (4.2-5.4); Red Cell Distribution Width 13.3 % (11.5-14.5); White Blood Count 13.3 K/mm3 (4.5-10.0)
[2024-07-16 06:32] VITALS: BP 115/58; PULSE 95; RESP 18; TEMP 37.2; O2SAT 96
[2024-07-16 06:37] LABS: Anion Gap 4 mmol/L (4-12); Blood Urea Nitrogen 10 mg/dL (7-17); Carbon Dioxide 27 mmol/L (22-30); Chloride 105 mmol/L (98-107); Estimated CRCL calculation 51 ml/min; Estimated Glomerular Filt Rate > 60; Glucose 81 mg/dL (65-110); Magnesium 1.8 mg/dL (1.6-2.3); Potassium 3.4 mmol/L (3.4-5.0); Rheumatoid Factor < 12.0 IU/ML (<12); Sodium 136 mmol/L (137-145)
[2024-07-16 06:55] LABS: Digoxin < 0.5 ng/mL (0.8-2.0)
--- NOTE | 2024-07-16 07:30 | PM.PNORT ---
Subjective Subjective Date/Time Seen: 07/16/24 07:30 Interval history: Postop day 1 patient is alert. She is a for signs are stable. She did have some mild nausea yesterday after anesthesia, no emesis. This has dissipated completely. Patient was up yesterday walk with physical therapy and was very comfortable. Overall pain is well controlled this morning. Morning labs are noted. Patient's dressing is dry and intact. Neurovascularly she is intact. She will work with therapy this morning and if she is comfortable we will plan to discharge her home later this morning. If she feels she wishes to have an additional therapy today she will stay until this afternoon for 2nd therapy session and then be discharged early this afternoon. Objective Data Vital Signs Vital Signs: Vital Signs - 24 hr 07/15/24 11:45 07/15/24 12:00 07/15/24 12:15 Temperature 98.4 F Pulse Rate 94 97 86 Respiratory Rate 13 18 12 Blood Pressure 148/91 H 134/77 132/77 Pulse Oximetry 100 100 100 Oxygen Delivery Simple Face Mask Simple Face Mask Simple Face Mask Oxygen Flow Rate 8 8 8 07/15/24 12:30 07/15/24 12:45 07/15/24 13:00 Temperature Pulse Rate 76 83 86 Respiratory Rate 17 12 16 Blood Pressure 138/66 130/80 136/81 Pulse Oximetry 100 100 94 Oxygen Delivery Simple Face Mask Simple Face Mask Room Air Oxygen Flow Rate 8 8 07/15/24 13:13 07/15/24 13:42 07/15/24 15:16 Temperature 98.3 F Pulse Rate 88 Respiratory Rate 16 Blood Pressure 139/85 Pulse Oximetry 98 Oxygen Delivery Nasal Cannula Room Air Room Air Oxygen Flow Rate 2 07/15/24 13:13 07/15/24 13:28 07/15/24 13:58 Temperature 97.8 F 97.3 F L 97.3 F L Pulse Rate 77 82 92 Respiratory Rate 18 18 18 Blood Pressure 137/76 130/70 127/65 Pulse Oximetry 99 97 97 Oxygen Delivery Oxygen Flow Rate 07/15/24 14:58 07/15/24 15:33 07/15/24 22:46 Temperature 97.2 F L 98.3 F Pulse Rate 97 82 Respiratory Rate 20 18 Blood Pressure 133/72 116/65 Pulse Oximetry 97 100 Oxygen Delivery Room Air Oxygen Flow Rate 07/15/24 22:05 07/16/24 02:58 07/16/24 06:32 Temperature 98.3 F 98.9 F Pulse Rate 82 66 95 Respiratory Rate 18 16 18 Blood Pressure 110/62 115/58 L Pulse Oximetry 100 100 96 Oxygen Delivery Room Air Oxygen Flow Rate Intake/Output Intake/Output: Intake & Output 07/13/24 07/14/24 07/15/24 07/16/24 23:59 23:59 23:59 23:59 Intake Total 840 350 Balance 840 350 Meds/Results Medications: Active Medications Generic Name Dose Route Start Last Admin Trade Name Freq PRN Reason Stop Dose Admin Acetaminophen 650 mg 07/15/24 13:00 07/16/24 04:57 Acetaminophen 325 Mg Tablet PO 650 mg Q4H [facility] Administration Apixaban 2.5 mg 07/16/24 09:00 Apixaban 2.5 Mg Tablet PO 07/27/24 21:01 Q12HR [facility] Cefdinir 300 mg 07/16/24 12:00 Cefdinir 300 Mg Capsule PO Q12HR [facility] Celecoxib 100 mg 07/16/24 08:00 Celecoxib 100 Mg Capsule PO DAILY@0800 [facility] Clonazepam 2 mg 07/15/24 21:00 07/15/24 22:11 Clonazepam (*Crx) 0.5 Mg Tablet PO Not Given HS [facility] Digoxin 125 mcg 07/16/24 09:00 Digoxin Tab 125 Mcg Tablet PO DAILY [facility] Diphenhydramine HCl 25 mg 07/15/24 13:13 Diphenhydramine Hcl Inj 50 Mg/Ml Vial IV PUSH Q6H PRN Itching Famotidine 20 mg 07/15/24 21:00 07/15/24 22:09 Famotidine 20 Mg Tablet PO 20 mg Q12HR [facility] Administration Hydromorphone HCl 0.5 mg 07/15/24 13:13 Hydromorphone Hcl Inj (*Crx) 1 Mg/Ml Syr IV PUSH Q2H PRN Breakthrough Pain Rated 4-6 or NPO Vancomycin HCl 1,000 mg in 250 mls @ 250 mls/hr 07/15/24 19:00 07/15/24 17:59 Vancomycin 1,000 Mg/Ns 250 Ml IVPB 07/16/24 07:59 125 mls/hr Q12H [facility] Administration Morphine Sulfate 4 mg 07/15/24 13:13 Morphine Sulfate (*Crx) 4 Mg/Ml Inj IV PUSH Q2H PRN Breakthrough Pain Rated 7-10 or NPO Naloxone HCl 0.1 mg 07/15/24 13:13 Naloxone Hcl 0.4 Mg/Ml
[2024-07-16 08:10] VITALS: PULSE 89
[2024-07-16] MEDS: APIXABAN 2.5 MG TABLET PO (08:10)
[2024-07-16] MEDS: DIGOXIN TAB 125 MCG TABLET PO (08:10)
[2024-07-16] MEDS: PANTOPRAZOLE 40 MG TABLET PO (08:11)
[2024-07-16] MEDS: FAMOTIDINE 20 MG TABLET PO (08:11)
[2024-07-16] MEDS: SENNA/DOCUSATE SODIUM TABLET 2 TAB PO (08:12)
[2024-07-16] MEDS: CELECOXIB 100 MG CAPSULE PO (08:13)
[2024-07-16] MEDS: CHOLECALCIFEROL 1,000 UNITS TABLET 5000 UNITS PO (08:13)
[2024-07-16] MEDS: polyethylene glycoL 3350 17 GM POWD.PACK PO (08:14)
[2024-07-16] MEDS: VANCOMYCIN 1,000 MG/NS 250 ML 1,000 MG/250 ML BAG 125 MG IVPB (08:14)
--- NOTE | 2024-07-16 08:56 | PM.DS ---
DS: Admitting Diagnosis Discharge Date 07/16 Admitting Diagnosis Left knee DJD DS: Discharge Diagnosis Discharge Diagnosis (1) History of total left knee replacement: Code(s): Z96.652 - Presence of left artificial knee joint Status: Acute DS: Summary Hospital Course Hospital Course: 78-year-old female who underwent left total knee arthroplasty on 07/15. Postoperatively patient had some mild nausea after general anesthesia but no emesis. This quickly dissipated. She has been afebrile vital signs been stable. She was up walking with physical therapy the day of surgery and is comfortable. She is weight-bearing as tolerated. She is on Eliquis for 1 week DVT prophylaxis after the Eliquis is done she will resume her normal Xarelto dosing. She is on Celebrex 100 mg a day for the 1st week while she is on the Eliquis. Morning of postop day 1 patient was alert and comfortable. Pain is well controlled. Dressing is dry and intact. Neurovascularly she is intact. Overall patient is doing very well. She will be discharged home on 07/16. Patient was advised to keep leg elevated home prevent swelling but also do her exercises on hourly basis. She will go home with the scheduled Tylenol every 4 hours as well as oxycodone 2.5 mg. She will go home with a 1 week course Omnicef as well as Senokot and MiraLax. Patient was advised any questions or concerns she is to call the office otherwise we will see her at appointed dates. She has outpatient therapy starting next week. Time Spent with Patient Time attestation: Total time spent providing and/or coordinating discharge services: DS: Data Data Completed and Pending Labs on day of discharge: Labs from last 24 hours 07/16/24 05:50 WBC 13.3 H RBC 3.08 L Hgb 9.1 L D Hct 29.0 L MCV 94.2 MCH 29.5 MCHC 31.4 L RDW 13.3 Plt Count 156 MPV 13.1 H Immature Gran % (Auto) 0.7 H Neut % (Auto) 77.3 H Lymph % (Auto) 12.1 L [place] % (Auto) 8.9 H Eos % (Auto) 0.5 Baso % (Auto) 0.5 Lymph # (Auto) 1.61 [place] # (Auto) 1.2 H Eos # (Auto) 0.1 Baso # (Auto) 0.1 Abs Immat Gran (auto) 0.09 H Absolute Neuts (auto) 10.3 H Absolute Nucleated RBC 0.000 Nucleated RBC % 0.0 % Immature Plt Fraction 11.6 H Sodium 136 L Potassium 3.4 Chloride 105 Carbon Dioxide 27 Anion Gap 4 BUN 10 D Creatinine 0.70 Estim Creat Clear Calc 51 Estimated GFR > 60 Glucose 81 Calcium 8.0 L Magnesium 1.8 Digoxin < 0.5 L Rheumatoid Factor < 12.0 Anti-Cycl Citrul Peptide Pending BRANDI Screen Pending Discharge Plan Discharge Patient Disposition: Home, Self-Care Discharge Instructions: GALLO LEYVA [facility] [address] [address] [address] [place] [address] POST-OPERATIVE DISCHARGE INSTRUCTIONS TOTAL KNEE ARTHROPLASTY 1. When resting, do not rest in the chair.When resting, lie on your back, with back flat on the couch or bed, with leg elevated above heart to minimize swelling. You may put a pillow under your head. . Significant swelling could indicate a blood clot and if this occurs call the office (or go to the ER) to have a venous ultrasound. Therefore, do not rest in a chair. 2. At least five times a day spend several minutes stretching your knee into flexion while sitting in the chair and also stretching your knee out straight The abilities to bend your knee fully and straighten your knee fully are two most important knee functions to focus on during your recovery. 3. It is ok to sit in chair to eat, use the toilet and receive a guest and to do your stretching exercises, but, sitting in a chair will cause your leg to swell. Therefore, avoid additional time sitting in the chair. and don't rest in the chair. 4. Wound Care: Nursing will give you an additional Mepilex dressing at the time of discharge. Patient to remove the dressing and apply a new Mepilex dressing at home 7 days after surgery and leave the dressi
--- NOTE | 2024-07-16 09:18 | PM.IMPN ---
Progress Note: A&P Assessment and Plan (1) Osteoarthritis of left knee: Qualifiers: Osteoarthritis type: unspecified Qualified Code(s): M17.12 - Unilateral primary osteoarthritis, left knee Code(s): M17.12 - Unilateral primary osteoarthritis, left knee Status: Acute Assessment and Plan: Postoperative day 1 status post left total knee arthroplasty. Wound care, pain control, and DVT prophylaxis deferred to Dr. Velazquez. Patient doing well on being discharged per Orthopedics (2) Atrial fibrillation: Code(s): I48.91 - Unspecified atrial fibrillation Status: Acute Assessment and Plan: She is in AFib at this time and is rate controlled. Check digoxin level in a.m. (3) Chronic anticoagulation: Code(s): Z79.01 - terminal supervisor (current) use of anticoagulants Status: Acute Assessment and Plan: Resume rivaroxaban when okay with surgeon. (4) Gastroesophageal reflux disease: Qualifiers: Esophagitis presence: esophagitis presence not specified Qualified Code(s): K21.9 - Gastro-esophageal reflux disease without esophagitis Code(s): K21.9 - Gastro-esophageal reflux disease without esophagitis Status: Acute Assessment and Plan: Continue PPI. (5) History of left breast cancer: Code(s): Z85.3 - Personal history of malignant neoplasm of breast Status: Acute Assessment and Plan: Tamoxifen on hold to reduce risk of DVT postoperatively. Resume when okay with surgeon. Plan Thank you for allowing us to participate in this patient's care. Please do not hesitate to contact us with any questions. Time Spent With Patient Time with patient: 25 - 35 minutes Subjective Date/time seen: 07/16/24 09:18 Interval history: Postop day 1 patient is alert. She is a for signs are stable. She did have some mild nausea yesterday after anesthesia, no emesis. This has dissipated completely. Patient was up yesterday walk with physical therapy and was very comfortable. Overall pain is well controlled this morning. Morning labs are noted. Patient's dressing is dry and intact. Neurovascularly she is intact. She will work with therapy this morning and if she is comfortable we will plan to discharge her home later this morning. If she feels she wishes to have an additional therapy today she will stay until this afternoon for 2nd therapy session and then be discharged early this afternoon per orthopedics. Review of Systems Review of Systems: 12 systems were reviewed and are negative except for as per HPI. Exam Narrative: General: Well-developed female sitting at the side of the bed in no distress. Weight: 67.9 kg. BMI: 24.9. HEENT: PERRL, EOMI. Sclera anicteric. Oral mucosa moist. Neck: Supple. Respiratory: Lungs are clear to auscultation bilaterally. Cardiovascular: Regular rate and rhythm with S1-S2. Gastrointestinal: Abdomen is soft, nontender, and nondistended with positive bowel sounds. Skin: Warm and dry. No rash or lesions on limited exam. Extremities: No cyanosis, clubbing, or edema. Radial and pedal pulses intact. Musculoskeletal: Left knee dressing is clean, dry, and intact. There is some swelling about the knee. She is neurovascularly intact distal to the surgical site. Neurological: Alert. Cranial nerves 2-12 grossly intact. No gross focal deficits to casual conversation. Psychiatric: Pleasant and cooperative with normal mood and affect. Judgment and insight intact. Objective Data Vital Signs Vital Signs: Vital Signs - 24 hr 07/15/24 11:45 07/15/24 12:00 07/15/24 12:15 Temperature 98.4 F Pulse Rate 94 97 86 Respiratory Rate 13 18 12 Blood Pressure 148/91 H 134/77 132/77 Pulse Oximetry 100 100 100 Oxygen Delivery Simple Face Mask Simple Face Mask Simple Face Mask Oxygen Flow Rate 8 8 8 07/15/24 12:30 07/15/24 12:45 07/15/24 13:00 Temperature Pulse Rate
[2024-07-16] MEDS: CEFDINIR 300 MG CAPSULE PO (12:33)
[2024-07-19 15:33] LABS: Anti Cyclic Citrullinated Pept <16 UNITS
== END 2024-07-16 14:30 | disposition home or self-care (01) ==
LOC: ANHSURGERY 06:10 → ANH3MEDSUR 13:15
PROVIDERS: Physician Assistant; Physician Assistant Surgical; PCP Internal Medicine; Visit Provider Orthopaedic Surgery
PROC: (CPT 27447; principal; 2024-07-15 07:30)
DX: M17.12 Unilateral primary osteoarthritis, left knee (principal); M25.762 Osteophyte, left knee; M65.862 Other synovitis and tenosynovitis, left lower leg; I48.91 Unspecified atrial fibrillation; R73.03 Prediabetes; K21.9 Gastro-esophageal reflux disease without esophagitis; F41.9 Anxiety disorder, unspecified; G25.81 Restless legs syndrome; M47.892 Other spondylosis, cervical region; R05.3 Chronic cough; G89.29 Other chronic pain; M54.50 Low back pain, unspecified; Z79.01 Long term (current) use of anticoagulants; Z79.810 Long term (current) use of selective estrogen receptor modulators (SERMs); Z98.890 Other specified postprocedural states; Z85.3 Personal history of malignant neoplasm of breast; Z85.828 Personal history of other malignant neoplasm of skin; Z82.49 Family history of ischemic heart disease and other diseases of the circulatory system
CPT/HCPCS: 27447; 36415; 73560; 80048; 80162; 80307; 82040; 83036; 83735; 85025; 85055; 86038; 86039; 86200; 86430; 86850; 86900; 86901; 87081; 93005; 97110; 97116; 97161; 97165; 97530; 97535; A9270; C1713; C1776; J0171; J0330; J0690; J1100; J1171; J1885; J2270; J2405; J2704; J2795; J3010; J3370; J7030; J7120

== ENCOUNTER 2024-09-20 15:00 | Outpatient (RCR) | payer MEDICARE, SELFPAY ==
--- NOTE | 2024-07-16 11:44 | WPDANESPN ---
Anes - Prog Note Post-Op Date/Time: 07/16/24 11:44 Cardiovascular status: normal Respiratory status: normal Airway patency: baseline Mental status: baseline Post-Op hydration status: normal Pain Score (VAS): 0 Post-procedural complaints: none Patient Feedback: Patient satisfied with anesthetic care.
--- NOTE | 2024-07-22 15:21 | OPREHPOC ---
Outpatient Therapy Plan of Care This is a Multidisciplinary Plan of Care that may contain components documented by all disciplines (PT, OT, and ST.) PT Problem 1 PT Problem #1 Knowledge Deficit PT Goal 1 Goal / Goal Update *indep with HEP * correct gait pattern with assistive device Target Visit 10 PT Problem 2 PT Problem #2 Pain PT Goal 1 Goal / Goal Update 1* pain rating at 4/10 at worst 2* self assessment with LE functional scale rating of 62% limitation in activity level Target Visit 10 PT Problem 3 PT Problem #3 Impaired Range of Motion PT Goal 1 Goal / Goal Update increase L knee ROM for improved transfer and gait skills sitting active motion 1* flexion 120' 2* extension 0' Target Visit 10 PT Problem 4 PT Problem #4 Impaired Functional Mobility PT Goal 1 Goal / Goal Update 1* 2 minute walking test distance of 350' with assistive device 2* up/down 12 steps with one hand railing, modified indep 3* pt ambulate with L knee in full extension with stance phase Target Visit 10
--- NOTE | 2024-07-22 15:21 | PTOPEVAL1 ---
Assessment and note entered by Vandana Agrawal, PT Evaluation Information Assessment Status Evaluation ICD-10 Condition Codes (PT) Pain in left knee M25.562,Difficulty Walking R26.2 ,R26.9,Weakness R53.1,Z47.1 Onset 07-15-24 Subjective Information since surgery, using the wheeled walker; have been doing the knee exercises, keeping leg elevated and stretching every hour; Activity: home with ; stairs in home, did not use assistive device; Reported Pain Level Pain Score Self Report Additional Pain Score Comments pain been staying about 7/10 past few days; hurts behind knee; Assessment PT Clinical Summary Cande is s/p L TKR on 07-15-24. She has been doing the exercises at home and her is supportive and assisting pt. LE functional scale rating of 83% limitation in activity. With the evaluation: sitting active ROM of knee is (-15') to 100 with passive extension stretch in supine of (-8'); 2 minute walking test distance of 200' with wheeled walker; she is able to perform 10 reps of the supine exercises; there is edema and skin discoloration over foot, calf, knee and thigh. Skilled PT services are indicated for modalities to decrease pain and edema; therapeutic exercises to increase strength and ROM with education for HEP and progression of gait to lesser assistive device. Plan of Care Interventions Electrical Stimulation,Intermittent Compression, Manual Therapy,Neuro Re-education,Patient/ Caregiver Education,Therapeutic Activities, Therapeutic Exercise,Other Other Interventions taping PT Services Indicated Yes Treatment Frequency and 2x/wk for 10 visits Duration These treatments will address the objective and functional deficits as defined above. The patient will be advanced safely and appropriately in order for the patient to progress towards his/her prior level of function. Additional exercises will be introduced and as well as a comprehensive home exercise program upon discharge, if needed, ?to ensure carryover of functional gains achieved in the clinic. This treatment plan has been reviewed and agreement upon by the patient.
--- NOTE | 2024-08-23 15:37 | OPREHPOC ---
Outpatient Therapy Plan of Care This is a Multidisciplinary Plan of Care that may contain components documented by all disciplines (PT, OT, and ST.) PT Problem 1 PT Problem #1 Knowledge Deficit PT Goal 1 Goal / Goal Update *indep with HEP * correct gait pattern with assistive device Target Visit 10 Progress Met PT Goal 2 Goal / Goal Update 08-23-24 progress goals met continue to progress HEP and education Target Visit 18 PT Problem 2 PT Problem #2 Pain PT Goal 1 Goal / Goal Update 1* pain rating at 4/10 at worst 2* self assessment with LE functional scale rating of 62% limitation in activity level Target Visit 10 Progress Partially Met PT Goal 2 Goal / Goal Update 08-23-24 progress goal 2 met continue towards goal 1 Target Visit 18 PT Problem 3 PT Problem #3 Impaired Range of Motion PT Goal 1 Goal / Goal Update increase L knee ROM for improved transfer and gait skills sitting active motion 1* flexion 120' 2* extension 0' Target Visit 10 Progress Not Met PT Goal 2 Goal / Goal Update 08-23-24 progress goals not met, (-10') to 115 continue towards goals Target Visit 18 PT Problem 4 PT Problem #4 Impaired Functional Mobil PT Goal 1 Goal / Goal Update 1* 2 minute walking test distance of 350' with assistive device 2* up/down 12 steps with one hand railing, modified indep 3* pt ambulate with L knee in full extension with stance phase Target Visit 10 Progress Not Met PT Goal 2 Goal / Goal Update 08-23-24 progress goals not met, continue towards Target Visit 18
--- NOTE | 2024-08-23 15:37 | PTOPPROG ---
Assessment and note entered by Vandana Agrawal, PT Progress Re[prt Assessment Status Progress ICD-10 Condition Codes (PT) Pain in left knee M25.562,Difficulty Walking R26.2 ,R26.9,Weakness R53.1,Z47.1 Onset 07-15-24 Subjective Information knee is doing fair, not as good as I would like it to be; need more bend in my knee; use cane when go out, but most time at home, do not use anything; been doing the exercises; still having the tightness of her calf and swelling of her knee want to continue therapy to get knee better. PAIN: range in the past week 0-6/10; increase pain: bending knee, doing exercises decrease pain: elevate leg, take hydrocodone during day about every 4-6 hours; knee pain does not wake her up from sleeping reports pain with bending and straightening knee Assessment PT Clinical Summary Cande has received a total of 10 PT sessions. She has improved with ROM and strength of her L knee; reports pain up to 6/10 at worst; reports taking hydrocodone every 4-6 hours during the day; self assessment with LE functional scale from 83 to 60% limitation in activity level; 2 minute walking test with cane 310'; on stairs, can use alternate step pattern with cane and one hand railing; continues to have tightness over lateral calf and swelling over knee, calf and ankle. ROM of L knee: active in sitting (-10') to 115'; extension stretch in supine (-5'). Education provided for stretching knee extension and flexion motions every hour. The goals were partially met. Continue PT treatment. Plan of Care Interventions Hot Pack/Cold Pack,Manual Therapy,Neuro Re- education,Patient/Caregiver Education,Therapeutic Activities,Therapeutic Exercise,Ultrasound,Other Other Interventions taping PT Services Indicated Yes Treatment Frequency and 2x/wk for 8 visits Duration These treatments will address the objective and functional deficits as defined above. The patient will be advanced safely and appropriately in order for the patient to progress towards his/her prior level of function. Additional exercises will be introduced and as well as a comprehensive home exercise program upon discharge, if needed, ?to ensure carryover of functional gains achieved in the clinic. This treatment plan has been reviewed and agreement upon by the patient.
--- NOTE | 2024-09-30 15:19 | PTOPDC ---
Assessment and note entered by Vandana Agrawal, PT Assessment Status Discharge - Pt Not Present ICD-10 Condition Codes (PT) Pain in left knee M25.562,Difficulty Walking R26.2 ,Abnormalities of gait and mobility R26.9,Weakness R53.1,Aftercare following joint replacement surgery Z47.1 Onset 07-15-24 Subjective Information pt called on 09-23-24: canceled her remaining appointments, stated she was doing well and did not need any more therapy. Assessment PT Clinical Summary Cande has received a total of 14 PT sessions, from July 22 to September 20. She called and canceled the remaining appointments At the last session, her documented ROM of her knee was 0-130'. Discharge PT per pt request. The goals were not addressed. Plan of Care PT Services Indicated No
== END 2024-10-01 09:17 | disposition home or self-care (01) ==
LOC: ANHPT 15:00
PROVIDERS: PCP Internal Medicine; Visit Provider Orthopaedic Surgery
DX: M17.12 Unilateral primary osteoarthritis, left knee (principal); Z96.652 Presence of left artificial knee joint
CPT/HCPCS: 97016; 97035; 97110; 97116; 97140; 97161; 97530

== ENCOUNTER 2025-01-11 14:45 | Outpatient (RCR) | payer MEDICARE, SELFPAY ==
--- NOTE | 2024-11-25 12:53 | PCPTNOTE ---
pt was 15 minutes late for eval appt.
--- NOTE | 2024-11-25 16:21 | OPREHPOC ---
Outpatient Therapy Plan of Care This is a Multidisciplinary Plan of Care that may contain components documented by all disciplines (PT, OT, and ST.) PT Problem 1 PT Problem #1 Knowledge Deficit PT Goal 1 Goal / Goal Update *indep with HEP Target Visit 8 PT Goal 2 Goal / Goal Update * correct body mechanics with lifting 10#box with bilateral UEs, from the floor Target Visit 8 PT Problem 2 PT Problem #2 Pain PT Goal 1 Goal / Goal Update * pt report pain at worst rating of 5/10, to increase activity level Target Visit 8 PT Problem 3 PT Problem #3 Impaired Strength PT Goal 1 Goal / Goal Update * increase strength of trunk and hips, to improve stability to spine and improve positioning: pt perform 20 reps of mat and standing exercises Target Visit 8 PT Goal 2 Goal / Goal Update * 2 minute walking test distance of 450' to improve community ambulation Target Visit 8 PT Problem 4 PT Problem #4 Impaired Flexibility PT Goal 1 Goal / Goal Update *increase R and L hamstring flexibility to decrease strain to lumbar spine and hips: supine SLR to 55' R and L Target Visit 8
--- NOTE | 2024-11-25 16:21 | PTOPEVAL1 ---
Assessment and note entered by Vandana Agrawal, PT Evaluation Information Assessment Status Evaluation Diagnosis scoliosis, L hip trochanteric bursitis ICD-10 Condition Codes (PT) Pain in low back M54.50 Onset Jun 2024 Subjective Information gradual increase in pain in back and L hip after L TRK in June 2024; saw neurosurgeon--not a surgical candidate, need to have therapy x ray of L hip: small spur on greater trochanter history of chronic back and neck pain; go to chiropractor for back adjustments sometimes; Activity: no assistive device, home with in 2 story home; does the vacuuming. GOAL: feel better, not have as much pain; Reported Pain Level Pain Score Self Report Additional Pain Score Comments pain range of the past week 5-8/10; bilateral lumbar and into L buttock and lateral hip decrease pain: rest and ice over back; tylenol arthritis increase pain: too much activity- cleaning house, bending back walking is OK- helps back feel some better; no issues with sleeping Assessment PT Clinical Summary Cande has the diagnosis of back pain, L trochanteric syndrome with orders from 2 providers. She has a history of chronic neck and back pain, with increase back pain after L TKR. Self assessment with Oswestry rating of 26% limitation in activity level. She reports walking and sleeping are OK. Pain increases with more activity. With the evaluation: she has R hip elevation and forward rotation of R trunk; flatten lumbar spine lumbar extension increases her pain; 2 minute walking test distance of 375'; weakness of trunk and hips; decreased flexibility of R and L hamstring and piriformis muscles; Skilled PT services are indicated for modalities to decrease pain, therapeutic exercises to increase strength and flexibility with education for HEP, posture and pain control. Plan of Care Interventions Electrical Stimulation,Hot Pack/Cold Pack,Manual Therapy,Mechanical Traction,Neuro Re-education, Patient/Caregiver Education,Therapeutic Activities ,Therapeutic Exercise,Ultrasound,Other Other Interventions taping PT Services Indicated Yes Treatment Frequency and 1-2x/wk for 8 visits Duration These treatments will address the objective and functional deficits as defined above. The patient will be advanced safely and appropriately in order for the patient to progress towards his/her prior level of function. Additional exercises will be introduced and as well as a comprehensive home exercise program upon discharge, if needed, ?to ensure carryover of functional gains achieved in the clinic. This treatment plan has been reviewed and agreement upon by the patient.
--- NOTE | 2024-12-01 15:32 | PCPTNOTE ---
Canceled, ill. AKS
--- NOTE | 2024-12-22 13:26 | OPREHPOC ---
Outpatient Therapy Plan of Care This is a Multidisciplinary Plan of Care that may contain components documented by all disciplines (PT, OT, and ST.) PT Problem 1 PT Problem #1 Knowledge Deficit PT Goal 1 Goal / Goal Update *indep with HEP 12-22-24 progress goal met continue to progress education and HEP Target Visit 12 PT Goal 2 Goal / Goal Update * correct body mechanics with lifting 10#box with bilateral UEs, from the floor 12-22-24 progress goal met Target Visit 8 Progress Met PT Problem 2 PT Problem #2 Pain PT Goal 1 Goal / Goal Update * pt report pain at worst rating of 5/10, to increase activity level 12-22-24 progress goal not met continue towards Target Visit 12 PT Problem 3 PT Problem #3 Impaired Strength PT Goal 1 Goal / Goal Update * increase strength of trunk and hips, to improve stability to spine and improve positioning: pt perform 20 reps of mat and standing exercises 12-22-24 progress goal not met continue towards Target Visit 12 PT Goal 2 Goal / Goal Update * 2 minute walking test distance of 450' to improve community ambulation 12-22-24 progress goal not met, improved to 425' continue towards Target Visit 12 PT Problem 4 PT Problem #4 Impaired Flexibility PT Goal 1 Goal / Goal Update *increase R and L hamstring flexibility to decrease strain to lumbar spine and hips: supine SLR to 55' R and L 12-22-24 progress goal not met continue towards Target Visit 12
--- NOTE | 2024-12-22 13:26 | PTOPPROG ---
Assessment and note entered by Vandana Agrawal, PT Assessment Status Progress Diagnosis scoliosis, L hip trochanteric bursitis ICD-10 Condition Codes (PT) Pain in low back M54.50 Onset Jun 2024 Subjective Information back is feeling better but L hip still hurts- but not hurt all the time; have been doing the exercises 3-4 x/day; want to continue therapy to get better; have an MRI in December,. PAIN: range in the past week 0-8/10; increase pain: more activity--cleaning house decrease pain: sit, rest, lie on back with ice, do exercises, when first wake up in the morning sleeping OK- have sleep number bed and have adjusted the firmness and it is comfortable also have pain in back of L knee since had TKR; also tightness and cramps in L calf Assessment PT Clinical Summary Cande has received 6 PT sessions. Compared to the initial evaluation: pain rating from 5-8/10 to 0-8/10- low back and L hip; self assessment with Oswestry rating from 26% to 30% limitation in activity level; 2 minute walking test distance from 375' with increase pain to 425' - no pain increase; hamstring tightness bilateral with slight increase in L hamstring flexibility and R is the same; hip strength is about the same --with mat exercises performs R and L 6-12 reps; with bilateral UE box lift of 10# floor/ waist height, without pain increase and correct technique; education for HEP and posture/body mechanics. The goals were partially met. Continue PT treatment. Plan of Care Interventions Electrical Stimulation,Hot Pack/Cold Pack,Manual Therapy,Mechanical Traction,Neuro Re-education, Patient/Caregiver Education,Therapeutic Activities ,Therapeutic Exercise,Ultrasound,Other Other Interventions taping PT Services Indicated Yes Treatment Frequency and 1-2x/wk for 6 visits Duration These treatments will address the objective and functional deficits as defined above. The patient will be advanced safely and appropriately in order for the patient to progress towards his/her prior level of function. Additional exercises will be introduced and as well as a comprehensive home exercise program upon discharge, if needed, ?to ensure carryover of functional gains achieved in the clinic. This treatment plan has been reviewed and agreement upon by the patient.
--- NOTE | 2025-01-17 09:23 | PTOPDC ---
Assessment and note entered by Vandana Agrawal, PT Assessment Status Discharge - Pt Not Present Diagnosis scoliosis, L hip trochanteric bursitis ICD-10 Condition Codes (PT) Pain in low back M54.50 Onset Jun 2024 Subjective Information pt called on 01-11-25: stated she was doing better; canceled remaining PT appointments. Assessment PT Clinical Summary Cande has received 8 PT sessions. She called and canceled remaining appointments due to being better. Discharge PT. The goals were not addressed. Plan of Care PT Services Indicated No
== END 2025-01-17 11:35 | disposition home or self-care (01) ==
LOC: ANHPT 14:45
PROVIDERS: PCP Internal Medicine; Visit Provider Neurological Surgery
DX: M70.62 Trochanteric bursitis, left hip (principal); M54.50 Low back pain, unspecified
CPT/HCPCS: 97014; 97110; 97140; 97161; 97530; G0283

== ENCOUNTER 2025-09-08 16:27 | Outpatient (CLI) | payer MEDICARE, SELFPAY ==
--- NOTE | ~2025-09-08 | XR_ITS ---
EXAMINATION: XR shoulder RT min 2V DATE: 09/08/2025 16:58 INDICATION: Pain. TECHNIQUE: 3 views of right shoulder were obtained. COMPARISON: None. FINDINGS: No acute bony lesions. Joint spaces are normal. Soft tissues are unremarkable. Calcified granulomatous lesions of right lung. IMPRESSION: 1. No plain radiographic abnormalities of right shoulder. Reviewed, dictated and finalized at location T. [facility]ING [facility]NOTTER
--- NOTE | ~2025-09-08 | XR_ITS ---
EXAMINATION: XR elbow RT min 3V DATE: 09/08/2025 16:58 INDICATION: Right shoulder pain TECHNIQUE: Anteroposterior, two oblique and lateral views of the right elbow were obtained. COMPARISON: None. FINDINGS: Alignment is normal. No fracture or joint effusion. Joint spaces are normal. Soft tissues are unremarkable. IMPRESSION: 1. Negative right elbow radiographs. Reviewed, dictated and finalized at location A. [facility]
== END 2025-09-08 16:28 | disposition home or self-care (01) ==
PROVIDERS: PCP Internal Medicine; Visit Provider Internal Medicine
DX: M25.511 Pain in right shoulder (principal); M79.601 Pain in right arm
CPT/HCPCS: 73030; 73080